=== PATIENT | male | born 1940 | race African-American/Black ===

== ENCOUNTER 2016-06-22 07:08 | Day surgery (SDC) | payer MEDICARE, OTHER ==
--- NOTE | 2016-06-06 10:45 | HISTORY AND PHYSICAL E ---
History and Physical NAME: JOAQUIM HOFFMAN : 1940 AGE: 75Y ADMITTED: 06/22/2016 ROOM: HISTORY OF PRESENT ILLNESS: The patient presents for colon screening. I saw the patient many years ago. He has a history of hemochromatosis, gastritis, duodenal ulcers, colorectal polyps. The patient does have history of hyperferritinemia and hemochromatosis. The patient was seen in 1997. At this time the patient presented for colon exam. I saw the patient in 1996; he did have sessile polyp in rectum resected. History of gastric ulcer and colorectal polyps. SOCIAL HISTORY: The patient is , 4 children. He is a smoker. PHYSICAL EXAMINATION: VITAL SIGNS: Blood pressure 150/70, pulse 80, respirations 18, temperature is 98. HEAD, EYES, EARS, NOSE AND THROAT: Normal. NECK: Supple. LUNGS: Clear. ABDOMEN: Soft. NEUROLOGIC EXAM: Negative. The patient's upper scope showing deformity in the duodenal bulb, some narrowing in the duodenum, descending duodenal junction. The patient did have another endoscopy in 1997. I did colon in 1997 showing history of polyps. Conclusion: Evaluation. Again the patient was seen in 2005 and he did have descending colon polyp and polypectomy and adenoma polyp descending colon. REVIEW OF SYSTEMS: CARDIAC: Negative. GASTROINTESTINAL: Polyps. History of hemochromatosis. I saw the patient today, 06/05, for colon screening. No complaint. , continued to smoke a pack a day. He quit drinking. His last colonoscopy 2005 showing polyps. PAST MEDICAL HISTORY: He does have hypertension, COPD. FAMILY HISTORY: Father , cause unknown. Mom is alive. MEDICATIONS: 1. Advair. 2. Allopurinol. 3. Ranitidine. 4. Simvastatin. 5. Spiriva. 7. Claritin. 8. Lisinopril. CONCLUSION: Colon screening, history of polyps. PLAN: Colonoscopy, scheduled for 06/22/2016. DICTATING PHYSICIAN: CATA NARANJO M.D. [id number] PHY#: [id number] ID: [id number] JOB#: [id number] ACCT: [id number] cc:CATA NARANJO M.D. >
[2016-06-22] MEDS ORDERED: LIDOCAINE 2% JELLY 30 ML TUBE ONE (07:29)
[2016-06-22] MEDS ORDERED: NALOXONE HCL INJ/PF 0.4 MG/1 ML SDV ONE (07:29)
[2016-06-22] MEDS ORDERED: PROMETHAZINE HCL INJ 25 MG/1 ML VIAL ONE (07:30)
[2016-06-22] MEDS ORDERED: ONDANSETRON HCL INJ/PF 4 MG/2 ML SDV ONE (07:30)
[2016-06-22] MEDS ORDERED: GLYCOPYRROLATE INJ 0.4 MG/2 ML VIAL ONE (07:30)
[2016-06-22] MEDS ORDERED: GLUCAGON,HUMAN RECOMB 1 MG INJ ONE (07:31)
[2016-06-22] MEDS ORDERED: FENTANYL CITRATE INJ/PF 100 MCG/2 ML AMPUL ONE (07:31)
[2016-06-22] MEDS ORDERED: FLUMAZENIL INJ 0.5 MG/5 ML VIAL IV ONE (07:31)
[2016-06-22] MEDS ORDERED: EPINEPHRINE INJ 1 MG/10 ML DISP.SYRIN ONE (07:31)
[2016-06-22] MEDS: MIDAZOLAM 2 MG/2 ML INJ ONE ×2 (08:25→08:35)
[2016-06-22 09:29] VITALS: BP 140/79
[2016-06-22 10:19] LABS: ABSOLUTE BASOPHILS # (AUTO) 0.1 10^3/uL (0.0-0.2); ABSOLUTE EOSINOPHILS # (AUTO) 0.1 10^3/uL (0.0-0.6); ABSOLUTE LYMPHOCYTES (AUTO) 2.2 10^3/uL (0.5-4.7); ABSOLUTE MONOCYTES (AUTO) 0.9 10^3/uL (0.1-1.4); ABSOLUTE NEUT (AUTO) 7.8 10^3/uL (1.7-8.2); BASOPHILS % (AUTO) 0.7 % (0-2); EOSINOPHILS % (AUTO) 1.3 % (0-6); HEMATOCRIT 41.4 % (37.9-51.0); HEMOGLOBIN 14.2 g/dL (13.5-17.0); HGB HCT DIFFERENCE 1.2; LYMPHOCYTES % (AUTO) 19.9 % (13-45); MEAN CORPUSCULAR HEMOGLOBIN 33.5 pg (27.0-33.4); MEAN CORPUSCULAR HGB CONC 34.2 g/dL (32.0-36.0); MEAN CORPUSCULAR VOLUME 98 fl (80-97); MONOCYTES % (AUTO) 7.8 % (3-13); RED BLOOD COUNT 4.23 10^6/uL (4.35-5.55); RED CELL DISTRIBUTION WIDTH 13.3 % (11.5-14.0); SEGMENTED NEUTROPHILS % (AUTO) 70.3 % (42-78); WHITE BLOOD COUNT 11.1 10^3/uL (4.0-10.5)
--- NOTE | 2016-06-22 15:22 | OPERATIVE REPORT E ---
Operative Report NAME: JOAQUIM HOFFMAN : 1940 AGE: 75Y DATE OF SURGERY: 06/22/2016 ROOM: PREOPERATIVE DIAGNOSIS: COLON SCREENING. POSTOPERATIVE DIAGNOSIS: EXTERNAL HEMORRHOID. OPERATION: Colonoscopy. SURGEON: CATA NARANJO M.D. ANESTHESIA: Versed 2, fentanyl 50. TISSUE REMOVED OR ALTERED: None. PROCEDURE: Rectal exam; external hemorrhoids. Sigmoid and descending colon; redundant, normal. Transverse colon; normal. Ascending colon; normal. Cecum; normal. Scope withdrawn cecum, ascending, transverse, descending, sigmoid, all the way to the rectum. CONCLUSIONS: Redundant sigmoid and descending colon. No polyps. No bleeding. Mild external hemorrhoids. PLAN: Lab studies. Full-liquid diet today. Hold aspirin and nonsteroidals for 5 days. Soft, low residue diet for 3 days. DICTATING PHYSICIAN: CATA NARANJO M.D. [id number] PHY#: [id number] ID: [id number] JOB#: [id number] ACCT: [id number] cc:CATA NARANJO M.D., ROBERT M.D. >
--- NOTE | 2016-06-25 10:49 | DISCHARGE SUMMARY E ---
Discharge Summary NAME: JOAQUIM HOFFMAN : 1940 AGE: 75Y ADMITTED: 06/22/2016 DISCHARGED: 06/22/2016 PROCEDURE: Colonoscopy. FINAL DIAGNOSIS: Sigmoid diverticulosis. HOSPITAL COURSE: A 75-year-old male, heavy smoker, asthma underwent colon screening. No polyps. Sigmoid descending colon redundancy. External hemorrhoids. DISCHARGE PLAN: Assurance. Lab studies. Followup office visit in the next few days. Hold aspirin 5 days. Full liquid diet today. Difficult sigmoid intubation. Mild ecchymosis in the sigmoid from the scope. No active bleeding. CONCLUSION: Colon shows no polyps. No malignancy. Mild external hemorrhoids. Redundant sigmoid descending colon. Consider followup colonoscopy in 10 years. DICTATING PHYSICIAN: CATA NARANJO M.D. [id number] PHY#: [id number] ID: [id number] JOB#: [id number] ACCT: [id number] cc:CATA NARANJO M.D., ROBERT M.D. >
== END 2016-06-22 10:00 | disposition home or self-care (01) ==
LOC: END 07:08
PROVIDERS: ATTEND Specialist
PROC: 0DJD8ZZ Inspection of Lower Intestinal Tract, Via Natural or Artificial Opening Endoscopic (ICD-10-PCS; principal; 2016-06-22 08:00)
DX: Z12.11 Encounter for screening for malignant neoplasm of colon (principal); Z12.5 Encounter for screening for malignant neoplasm of prostate; K64.4 Residual hemorrhoidal skin tags; Q43.8 Other specified congenital malformations of intestine; F17.210 Nicotine dependence, cigarettes, uncomplicated; J44.9 Chronic obstructive pulmonary disease, unspecified; I10 Essential (primary) hypertension; Z79.51 Long term (current) use of inhaled steroids; Z79.899 Other long term (current) drug therapy; Z86.010 Personal history of colon polyps; Z87.11 Personal history of peptic ulcer disease
CPT/HCPCS: 36415; 82306; 82728; 83540; 85025; G0121; G0103; J2250; J3010; J1610; J2405; 45378; J0171; J2310; J2550; J3490

== ENCOUNTER 2018-05-30 11:08 | Day surgery (SDC) | payer MEDICARE, OTHER ==
--- NOTE | 2018-05-23 09:26 | EKG REPORT ---
SEVERITY:- ABNORMAL ECG - SINUS RHYTHM FIRST DEGREE AV BLOCK : Confirmed by: Trina Saavedra 23-May-2018 09:25:59
[2018-05-23 09:39] LABS: HEMATOCRIT 41.4 % (37.9-51.0); HEMOGLOBIN 14.6 g/dL (13.5-17.0); MEAN CORPUSCULAR HEMOGLOBIN 35.5 pg (27.0-33.4); MEAN CORPUSCULAR HGB CONC 35.3 g/dL (32.0-36.0); MEAN CORPUSCULAR VOLUME 101 fl (80-97); PLATELET COUNT 216 10^3/uL (150-450); RED BLOOD COUNT 4.12 10^6/uL (4.35-5.55); RED CELL DISTRIBUTION WIDTH 13.4 % (11.5-14.0); WHITE BLOOD COUNT 4.8 10^3/uL (4.0-10.5)
--- NOTE | 2018-05-23 09:48 | RADIOLOGY REPORT (SQ) ---
EXAM DESCRIPTION: CHEST PA/LATERAL COMPLETED DATE/TIME: 05/23/2018 9:25 am REASON FOR STUDY: SOB,PRE-OP COMPARISON: None. EXAM PARAMETERS: NUMBER OF VIEWS: two views TECHNIQUE: Digital Frontal and Lateral radiographic views of the chest acquired. RADIATION DOSE: NA LIMITATIONS: none FINDINGS: LUNGS AND PLEURA: No opacities, masses or pneumothorax. No pleural effusion. I cannot exc lude a component of obstructive lung disease. MEDIASTINUM AND HILAR STRUCTURES: No masses or contour abnormalities. HEART AND VASCULAR STRUCTURES: Heart normal size. No evidence for failure. BONES: No acute findings. HARDWARE: None in the chest. OTHER: No other significant finding. IMPRESSION: NO acute RADIOGRAPHIC FINDING IN THE CHEST. TECHNICAL DOCUMENTATION: JOB ID: [id number] [employer]- All Rights Reserved Reading location - IP/workstation name: [email or web address]
[2018-05-23 10:07] LABS: ANION GAP 10 (5-19); BLOOD UREA NITROGEN 13 mg/dL (7-20); CALCIUM 9.7 mg/dL (8.4-10.2); CARBON DIOXIDE 27 mmol/L (22-30); CHLORIDE 108 mmol/L (98-107); GLUCOSE 90 mg/dL (75-110); POTASSIUM 3.7 mmol/L (3.6-5.0); SODIUM 144.7 mmol/L (137-145)
[~2018-05-30 11:08] MED LIST: CEFAZOLIN 2 GM/D5W RTU 2 GM/50 ML RTUPB IV PRN; IBUPROFEN 800 MG in NORMAL SALINE 250 ML IV PRN; LACTATED RINGERS 1000 ML IV PRN
[2018-05-30] MEDS ORDERED: CEFAZOLIN 2 GM/D5W RTU 2 GM/50 ML RTUPB IV ONE (11:50)
[2018-05-30] MEDS ORDERED: BUPIVACAINE HCL 0.25 % INJ/PF (2.5 MG/1 ML) 30 ML VIAL ONE (12:23)
[2018-05-30] MEDS ORDERED: LIDOCAINE 1% INJ-PF (10 MG/ML) 30 ML SDV ONE (12:23)
[2018-05-30] MEDS ORDERED: FENTANYL CITRATE INJ/PF 100 MCG/2 ML AMPUL ONE (13:56)
[2018-05-30] MEDS ORDERED: MIDAZOLAM 2 MG/2 ML INJ ONE (13:56)
[2018-05-30] MEDS ORDERED: PROPOFOL INJ 200 MG/20 ML VIAL IV ONE (13:56)
[2018-05-30] MEDS ORDERED: ONDANSETRON HCL INJ/PF 4 MG/2 ML SDV ONE (13:56)
[2018-05-30] MEDS ORDERED: MORPHINE SULFATE 10 MG/ML INJ IV PRN (14:28)
[2018-05-30] MEDS ORDERED: FENTANYL CITRATE INJ/PF 100 MCG/2 ML AMPUL IV PRN ×3 (14:28)
[2018-05-30] MEDS ORDERED: PROMETHAZINE HCL INJ 25 MG/1 ML VIAL IV PRN ×2 (14:28)
[2018-05-30] MEDS ORDERED: ONDANSETRON HCL INJ/PF 4 MG/2 ML SDV IV PRN (14:28)
[2018-05-30] MEDS ORDERED: DIPHENHYDRAMINE HCL 50 MG/ML VIAL IV PRN (14:28)
[2018-05-30] MEDS ORDERED: MEPERIDINE HCL/PF INJ 25 MG/1 ML DISP.SYRIN IV PRN (14:28)
[2018-05-30] MEDS ORDERED: HYDROCODONE/ACETAMINOPHEN 5-325 MG TABLET PO PRN (15:27)
[2018-05-30 16:32] LABS: PHOSPHORUS 3.2 mg/dL (2.5-4.5)
[2018-05-30 17:48] VITALS: BP 114/60
--- NOTE | 2018-05-31 14:31 | Discharge Summary ---
Discharge Summary (SDC) - Discharge Final Diagnosis: Sebaceous cyst of the back x2 Date of Surgery: 05/30/18 Discharge Date: 05/30/18 Condition: Stable Forms: ASU Anesthesia D/C Instruction, Discharge POC-Surgical Service Referrals: GEOFF ORTEGA MD [Primary Care Provider] - DORINDA GR MD [ACTIVE STAFF] - (Follow up with Dr Gr in 7-10 days.) Discharge Diet: As Tolerated Respiratory Treatments at Home: Deep Breathing/Coughing, Incentive Spirometer Discharge Activity: Activity As Tolerated Home Care Assistance: None Needed Report the Following to Your Physician Immediately: Shortness of Breath, Nausea , Vomiting, Increase in Pain, Fever over 101 Degrees, Unusual Bleeding, Redness , Swelling, Warmth, Increased Soreness, Drainage-Yellow, IV Site Infection Signs
--- NOTE | 2018-05-31 14:37 | Operative Report ---
Nonrecallable Operative Report DATE OF SURGERY: 05/30/18 PREOPERATIVE DIAGNOSIS: Sebaceous cyst of the back x2 POSTOPERATIVE DIAGNOSIS: Same as above OPERATION: 1. Excision of sebaceous cyst of the back, 3 cm diameter. 2. Intermediate closure of 3 cm back incision. 3. Excision of sebaceous cyst of the back, 2 cm diameter. 4. Intermediate closure of 2 cm back incision. SURGEON: DORINDA ROBLERO ANESTHESIA: LMAC TISSUE REMOVED OR ALTERED: Sebaceous cyst of the back x2 (3 cm and 2 cm) COMPLICATIONS: None apparent ESTIMATED BLOOD LOSS: Minimal PROCEDURE: Drains/implants: none. Procedure in detail: After informed consent was obtained, the patient was brought to the operating room and laid in the right lateral decubitus position. The area of the left back was prepped and draped in a normal sterile fashion. An elliptical incision was created over the fluctuant area in the left lateral upper back. There was a large sebaceous cyst identified. It was removed from the surrounding subcutaneous tissues using sharp dissection. Once the cyst was completely excised, it was passed off the table and measured. The cyst measured 3 cm in maximal diameter. Hemostasis was then achieved using Bovie electrocautery. The subcutaneous tissue was closed using 3-0 Vicryl suture in simple running fashion. The overlying skin was closed using 4-0 Vicryl Rapide suture in subcuticular fashion. Attention was then turned to the more medial sebaceous cyst. The cyst on the medial left back was identified. An elliptical incision was created over the cyst. The cyst was excised from the subcutaneous tissue using sharp dissection. Once the cyst was removed from the patient, it was passed off the field and measured. The cyst measured 2 cm in maximal diameter. Hemostasis was then achieved using Bovie electrocautery. The subcutaneous tissues were closed using 3-0 Vicryl suture in simple running fashion. The overlying skin was closed using 4-0 Vicryl Rapide suture in subcuticular fashion. Dressings were then placed, and the procedure was concluded. All sponge, instrument, and needle counts were correct x2. Condition: Stable.
== END 2018-05-30 17:40 | disposition home or self-care (01) ==
LOC: OROUT 11:08
PROVIDERS: ATTEND Surgery
DX: L72.3 Sebaceous cyst (principal); J44.9 Chronic obstructive pulmonary disease, unspecified; M10.9 Gout, unspecified; I10 Essential (primary) hypertension; F17.210 Nicotine dependence, cigarettes, uncomplicated; Z79.01 Long term (current) use of anticoagulants
CPT/HCPCS: 93005; 36415 ×2; 83735; 84100; 85027; 80048; 88304 ×2; 71046; 93010; 11406; 12032; J2250; J3010; J3490; J2405; J7050; J2704; J0690; J1741; 300